=== PATIENT | male | born 1980 | race Caucasian/White ===

== ENCOUNTER 2016-12-18 11:36 | Emergency (ER) | payer MEDICARE, OTHER ==
[~2016-12-18] VITALS: Ht 157.5 cm; Wt 67.5 kg
[2016-12-18 11:41] VITALS: Ht 157.5 cm; Wt 67.5 kg
[2016-12-18] MEDS ORDERED: TETRACAINE 0.5% 15 ML OPH RIGHT EYE ONE (13:00)
[2016-12-18] MEDS ORDERED: FLUORESCEIN STRIP RIGHT EYE ONE (13:00)
[2016-12-18] MEDS ORDERED: ONDANSETRON (ODT) 4 MG TAB ODT STA (13:03)
[2016-12-18] MEDS ORDERED: PRED20TA PO (13:07)
[2016-12-18] MEDS ORDERED: HYDR-906 PO (13:07)
[2016-12-18] MEDS ORDERED: ACYC800T57 PO (13:07)
[2016-12-18] MEDS ORDERED: HYDROCODONE/APAP (5/325) TAB PO ONE (13:30)
[2016-12-18] MEDS ORDERED: ACYCLOVIR 800 MG TAB PO ONE (13:30)
[2016-12-18] MEDS ORDERED: DEXAMETHASONE 10 MG/ML 1 ML INJ PO ONE (13:30)
--- NOTE | 2016-12-18 16:17 | ERD ---
DATE OF SERVICE: 12/18/2016 HISTORY OF PRESENT ILLNESS: The patient is a 36-year-old male complaining of a rash to the right si de of the face with irritation to his eye. The patient states that he has had pain on that side of his face for the last week; however, rash developed 1 day ago. He is HIV positive. He has not been on medications for 4 years. He has not been followed. He does not know his viral load. He has no t used medications for the pain or the rash. No sick contacts. Denies any contacts or glasses use. MEDICAL HISTORY: HIV positive and avascular necrosis. ALLERGIES TO MEDICATIONS: DENIES. PAST SURGICAL HISTORY: Bilateral hip replacement and left knee replacement. SOCIAL HISTORY: Smokes half a pack of cigarettes a day. REVIEW OF SYSTEMS: A 12-point review of systems was done. Refer to HPI for positives; all other sy stems negative. PHYSICAL EXAMINATION VITAL SIGNS: Temperature is 98.1, pulse is 104, blood pressure is 130/71, respiratory rate 20, O2 s aturation 99% on room air. Pain intensity 8/10. GENERAL: The patient is well-appearing, well-nourished, no acute distress. HEENT: The patient has injection noted to the right sclerae. Pupils equal, round, and reactive to light. CHEST: Clear to auscultation bilaterally. There are no rales, wheezes or rhonchi. HEART: Regular rate and rhythm. No murmurs, clicks, rubs or gallops. No S3 or S4. SKIN: The patient has grouped vesicles with erythematous base noted over the right forehead with sw elling noted to the right upper eyelid. EMERGENCY ROOM COURSE: Fluorescein stain was done by Dr. Garcia who stated there were no signs of d endritic lesions within the eye. There is no fluorescein uptake. The patient's visual acuity was 2 0/20 on the left and 20/20 on the right with bilateral 20/20 and no use of corrective lenses. The p atient also was given oral Decadron in the ER as well as Golden and acyclovir and Zofran. DIAGNOSIS: Shingles. MEDICAL DECISION MAKING: I have low suspicion for ocular involvement. There are no signs of dendri tic lesions on fluoroscein stain. The patient will be referred to an repairer wood furniture for close eval uation. I have low suspicion for other life threatening rash. The patient is immunocompromised and is recommended to follow up with infectious disease physicians for reinitiation of antiviral treatm ent. DISCHARGE: The patient is discharged stable. The patient was given a prescription for acyclovir, p rednisone, and Golden and told to follow up with primary, infectious disease, and ophthalmology withi n 1 to 2 days for close evaluation. The patient was told if symptoms change or worsen to return to the ER. All questions answered at time of discharge. Discharge summary given at the time of depart ure. The patient understood and complied with plan. Dictated By: ASAF FRANK for LAMINE MOLIAN/CARMELLA Conf#: [id number] DID#: [id number]
[2016-12-20] MEDS ORDERED: FLUORESCEIN STRIP RIGHT EYE ONE (11:00)
== END 2016-12-18 14:14 | disposition home or self-care (01) ==
LOC: FTE 11:36
DX: B02.9 Zoster without complications (principal); F17.210 Nicotine dependence, cigarettes, uncomplicated; Z96.643 Presence of artificial hip joint, bilateral; Z96.652 Presence of left artificial knee joint
CPT/HCPCS: 99284; J1100

== ENCOUNTER 2016-12-20 10:07 | Emergency (ER) | payer MEDICARE, OTHER ==
[~2016-12-20] VITALS: Ht 160 cm; Wt 65.0 kg
[~2016-12-20 10:07] MED LIST: ACYC800T57 PO; HYDR-906 PO; PRED20TA PO
[2016-12-20 10:21] VITALS: Ht 160 cm; Wt 65.0 kg
[2016-12-20] MEDS ORDERED: FLUORESCEIN STRIP ONE (10:48)
[2016-12-20] MEDS ORDERED: TETRACAINE 0.5% 15 ML OPH ONE (10:49)
[2016-12-20] MEDS ORDERED: TETRACAINE 0.5% 15 ML OPH RIGHT EYE ONE (11:00)
[2016-12-20] MEDS ORDERED: HYDROCODONE/APAP (10/325) TAB PO ONE (11:00)
[2016-12-20] MEDS ORDERED: predniSONE 20 MG TAB PO ONE (11:00)
[2016-12-20] MEDS ORDERED: VALACYCLOVIR 500 MG TAB PO ONE (11:00)
--- NOTE | 2016-12-20 11:23 | ERD ---
ER Documentation Chief Complaint Date/Time DATE: 12/20/16 TIME: 11:20 Chief Complaint rash to right upper eye and orbit area with redness for 2 days. and pain HPI This is a 36-year-old male who presents to the emergency room for evaluation of a rash to his eye and face. This patient was in the emergency room 2 days prior was diagnosed with shingles. He states that he lost his prescriptions and came to the ER today for evaluation. He states he is having pain on his face, and is having discharge from the right eye. Denies any blurred vision or loss of vision in the right eye. ROS All systems reviewed and are negative except as per history of present illness. Medications Home Meds Active Scripts Hydrocodone/Acetaminophen ([place] 5-325 Tablet) 1 Each Tablet, 1 TAB PO Q6H Y for PAIN, #7 TAB Prov:CARLOS MORALES PA-C 12/18/16 Prednisone* (Prednisone*) 20 Mg Tab, 40 MG PO DAILY for 4 Days, TAB Prov:CARLOS MORALES PA-C 12/18/16 Acyclovir* (Zovirax*) 800 Mg Tablet, 800 MG PO 5 TIMES DAILY for 7 Days, TAB Prov:CARLOS MORALES PA-C 12/18/16 Allergies Allergies: Coded Allergies: No Known Drug Allergies (Verified Allergy, Unknown, 12/18/16) PMhx/Soc History of Surgery: Yes (hip and knee) Anesthesia Reaction: No Hx Neurological Disorder: No Hx Respiratory Disorders: No Hx Cardiac Disorders: No Hx Psychiatric Problems: No Hx Miscellaneous Medical Probl: Yes (hiv, avascular necrosis) Hx Alcohol Use: No Hx Substance Use: Yes (marijuana ) Hx Tobacco Use: Yes (1/2 pack/ day) Smoking Status: Current every day smoker Physical Exam Vitals Vital Signs Date Time Temp Pulse Resp B/P Pulse Ox O2 Delivery O2 Flow Rate FiO2 12/20/16 10:21 98.8 84 20 124/76 98 Physical Exam Const: No acute distress Head: [Atraumatic] Eyes: [Normal Conjunctiva] ENT: [Normal External Ears, Nose and Mouth.] Neck: [Full range of motion. No meningismus.] Resp: [Clear to auscultation bilaterally] Cardio: [Regular rate and rhythm, no murmurs] Abd: [Soft, non tender, non distended. Normal bowel sounds] Skin: Vesicular lesions on erythematous base in a dermatomal distribution with no crossing of the midline involving the right upper face, right eyelid, positive Harkins sign Back: [No midline or flank tenderness] Ext: [No cyanosis, or edema] Neur: [Awake and alert] Psych: [Normal Mood and Affect] Results 24 hrs Current Medications Medications (Trade) Dose Ordered Sig/[place] Route PRN Reason Start Time Stop Time Status Last Admin Dose Admin Fluorescein Sodium (Kqnab-[id number]) 1 strip STK-MED ONCE .ROUTE 12/20/16 10:48 12/20/16 10:49 DC Tetracaine HCl (Tetracaine 0.5% Oph) 60 drop STK-MED ONCE .ROUTE 12/20/16 10:49 12/20/16 10:50 DC Valacyclovir HCl (Valtrex) 1,000 mg ONCE ONCE PO 12/20/16 11:00 12/20/16 11:01 DC 12/20/16 11:09 Acetaminophen/ Hydrocodone Bitart ([place] (10/325)) 1 tab ONCE ONCE PO 12/20/16 11:00 12/20/16 11:01 DC 12/20/16 11:06 Prednisone (Prednisone) 40 mg ONCE ONCE PO 12/20/16 11:00 12/20/16 11:01 DC 12/20/16 11:06 Tetracaine HCl (Tetracaine 0.5% Oph) 1 drop ONCE ONCE RIGHT EYE 12/20/16 11:00 12/20/16 11:01 DC Procedures/MDM This 36-year-old male presents to the ER for evaluation of a rash on his face. This patient does have a shingles on his face and does have shingles over his right eyelid. I did send the patient's I and there is no signs of vesicular lesions on the cornea. This patient did lose his prescription. He was given valacyclovir here in the emergency room, prednisone, [place]. He will be discharged home with a prescription for acyclovir, [place], and prednisone. He is HIV positive and has not follow-up with a primary care physician and is on antiviral therapy. 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 I discussed the importance of following up with an supervisor cigar processing as ocular involvement of shingles can lead to permanent blindness and he verbalized understanding. I will give him referral for both in the emergency room today. Departure Diagnosis: Primary Impression: Shingles outbreak Condition: KEYUR Ibarra DO Dec 20, 2016 11:23
[2016-12-20] MEDS ORDERED: HYDR-906 PO (11:24)
[2016-12-20] MEDS ORDERED: PRED20TA PO (11:24)
[2016-12-20] MEDS ORDERED: ACYC800T57 PO (11:24)
[2016-12-20 11:31] VITALS: BP 117/77; PULSE 87; RESP 20; TEMP 98.8
== END 2016-12-20 11:50 | disposition home or self-care (01) ==
LOC: E/R 10:07
DX: B02.9 Zoster without complications (principal); F17.210 Nicotine dependence, cigarettes, uncomplicated; R40.2142 Coma scale, eyes open, spontaneous, at arrival to emergency department; R40.2252 Coma scale, best verbal response, oriented, at arrival to emergency department; R40.2362 Coma scale, best motor response, obeys commands, at arrival to emergency department
CPT/HCPCS: 99284; J7512